=== PATIENT | male | born 1960 | race American Indian/Alaskan Native ===

== ENCOUNTER 2016-10-14 03:26 | Emergency (ER) | payer MEDICAID ==
[2016-10-14] MEDS ORDERED: PERCOCET 5/325 PO ONE (14:56)
[2016-10-14 15:26] LABS: Hematocrit 27.6 % (35.5-45.6); Hemoglobin 8.8 gm/dl (11.8-15.2); Mean Corpuscular HGB Conc 32 % (32-34); Mean Corpuscular Hemoglobin 29 pg (28-32); Mean Corpuscular Volume 92 fl (84-94); Platelet Count 160 K/mm3 (140-440); Red Cell Distribution Width 17.7 % (13.2-15.2); White Blood Count 10.3 K/mm3 (4.5-11.0)
[2016-10-14 15:47] LABS: Alanine Aminotransferase 26 units/L (7-56); Albumin 3.9 g/dL (3.9-5); Albumin/Globulin Ratio 1.4 %; Alkaline Phosphatase 61 units/L (35-129); BUN/Creatinine Ratio 16.66; Blood Urea Nitrogen 20 mg/dL (9-20); Calcium 8.8 mg/dL (8.4-10.2); Carbon Dioxide 40 mmol/L (22-30); Glucose 127 mg/dL (75-100); Total Protein 6.6 g/dL (6.3-8.2)
[2016-10-14 15:48] LABS: Anion Gap 14 mmol/L; Chloride 89.5 mmol/L (98-107); Potassium 5.2 mmol/L (3.6-5.0); Sodium 138 mmol/L (137-145)
[2016-10-14 15:51] LABS: Erythrocyte Sedimentation Rate 39 mm/Hr (0-20)
[2016-10-14] MEDS ORDERED: LASIX PO ONE (16:17)
[2016-10-14] MEDS ORDERED: BACTRIM DS PO ONE (16:17)
[2016-10-14 16:52] LABS: Basophils % (Manual) 0 % (0.0-1.8); Blastocytes % (Manual) 0 %
[2016-10-14 16:53] LABS: Anisocytosis 1+; Hypochromasia 2+; Ovalocytes 1+; Poikilocytosis Few
[2016-10-14 16:54] LABS: Diff Status Complete; Platelet Estimate Consistent w Auto
--- NOTE | 2016-10-14 16:57 | Emergency Department Report ---
ED Extremity Problem HPI - General Chief complaint: Extremity Injury, Lower Stated complaint: FOOT PAIN Time Seen by Provider: 10/14/16 14:42 Source: patient, EMS, old records reviewed Mode of arrival: Stretcher Limitations: No Limitations - History of Present Illness Initial comments: 56-year-old male with a past medical history of asthma, COPD with oxygen dependence, hypertension, CAD, and diabetes presents to the hospital complaining of lower extremity edema and pain. Pain is rated 8/10 in intensity and from the mid thighs down to the feet. Patient's bilateral lower extremity swelling which has persisted since discharge. Patient reports that the pain has been ongoing since his recent discharge 4 days ago . Patient has had swelling in the past but states this is worse to usual. Patient states the pain feels sharp, tingling, and aching. He denies chest pain or shortness of breath at this time. Patient has had multiple admissions the last 2 months. Most recent admission was September 24 until October 10. Patient was many for hypercapnic hypoxemic respiratory failure secondary to acute COPD exacerbation and treated for acute metabolic encephalopathy secondary to the same. Patient was intubated during that admission. Severity scale (0 -10): 10 - Related Data Previous Rx's Medication Instructions Recorded Last Taken Type ALBUTEROL NEB's [Proventil 0.083% 2.5 mg IH Q4HRT PRN #30 nebu 10/10/16 Unknown Rx NEBS] Arformoterol Nebu [Brovana Nebu] 15 mcg IH Q12HRT #30 ml 10/10/16 Unknown Rx Budesoni/Formoterol 80-4.5(Nf) 2 puff IH BID 30 Days 10/10/16 Unknown Rx [Symbicort 80-4.5 (Nf)] Budesonide [Pulmicort Respules] 0.25 mg IH Q12HRT #30 nebu 10/10/16 Unknown Rx Cefuroxime [Ceftin] 500 mg PO Q12HR #20 tablet 10/10/16 Unknown Rx Insulin Detemir [Levemir] 10 units SUB-Q QHS #30 units 10/10/16 Unknown Rx Pantoprazole [Protonix TAB] 40 mg PO QDAY #30 tablet 10/10/16 Unknown Rx Theophylline Anhydrous ER [Hakeem-24] 200 mg PO QDAY capsule 10/10/16 Unknown Rx amLODIPine [Norvasc] 10 mg PO QDAY #30 tablet 10/10/16 Unknown Rx predniSONE [Deltasone] 40 mg PO QDAY #7 tablet 10/10/16 Unknown Rx HYDROcodone/APAP 5-325 [[place] 1 each PO Q6HR PRN #20 tablet 10/14/16 Unknown Rx 5/325] Sulfamethoxazole/Trimethoprim 1 each PO BID #20 tablet 10/14/16 Unknown Rx [Bactrim DS TAB] Allergies Allergy/AdvReac Type Severity Reaction Status Date / Time aspirin Allergy Nausea Verified 09/04/16 21:45 ED Review of Systems ROS: Stated complaint: FOOT PAIN Other details as noted in HPI Comment: All other systems reviewed and negative Other: Constitutional: No fevers chills Eyes: No eye pain visual changes ENT: No ear pain or throat pain Neck: Denies pain Respiratory: Denies cough wheezing Cardiovascular: Denies chest pain, palpitations, syncope GI: Denies abdominal pain, nausea, vomiting, diarrhea : Denies dysuria Musculoskeletal: As per HPI Skin: Denies rash, lesions, erythema Neurologic: Denies headache, numbness, weakness Psychiatric: Denies suicidal ideation, hallucinations ED Past Medical Hx - Past Medical History Previous Medical History?: Yes Hx Hypertension: Yes Hx Heart Attack/AMI: Yes Hx Congestive Heart Failure: No Hx Diabetes: Yes Hx Deep Vein Thrombosis: No Hx Asthma: Yes Hx COPD: Yes Hx HIV: No - Surgical History Past Surgical History?: No Hx Pacemaker: No Hx Internal Defibrillator: No - Social History Smoking Status: Former Smoker Substance Use Type: None - Medications Home Medications: Home Medications Medication Instructions Recorded Confirmed Last Taken Type ALBUTEROL NEB's [Proventil 0.083% 2.5 mg IH Q4HRT PRN #30 nebu 10/10/16 Unknown Rx NEBS] Arformoterol Nebu [Brovana Nebu] 15 mcg IH Q12HRT #30 ml 10/10/16 Unknown Rx Budesoni/Formoterol 80-4.5(Nf) 2 puff IH BID 30 Days 10/10/16 Unknown Rx [Symbicort 80-4.5 (Nf)] Budesonide [Pulmicort Respules] 0.25 mg IH Q12HRT #30 nebu 10/10/16 Unknown Rx Cefuroxime [Ceftin] 500 mg PO Q12HR #20 tablet 10/10/16 Unknown Rx Insulin Detemir [Levemir] 10 units SUB-Q QHS #30 units 10/10/16 Unknown Rx Pantoprazole [Protonix TAB] 40 mg PO QDAY #30 tablet 10/10/16 Unknown Rx Theophylline Anhydrous ER [Hakeem-24] 200 mg PO QDAY capsule 10/10/16 Unknown Rx amLODIPine [Norvasc] 10 mg PO QDAY #30 tablet 10/10/16 Unknown Rx predniSONE [Deltasone] 40 mg PO QDAY #7 tablet 10/10/16 Unknown Rx HYDROcodone/APAP 5-325 [[place] 1 each PO Q6HR PRN #20 tablet 10/14/16 Unknown Rx 5/325] Sulfamethoxazole/Trimethoprim 1 each PO BID #20 tablet 10/14/16 Unknown Rx [Bactrim DS TAB] ED Physical Exam - General Limitations: No Limitations - Other Other exam information: General: No limitations, patient is alert in no acute distress Head exam: Atraumatic, normocephalic Eyes exam: Normal appearance, pupils equal reactive to light, extraocular movements intact ENT: Moist mucous membrane, normal oropharynx Neck exam: Normal inspection, full range of motion, no meningismus nontender Respiratory exam: Clear to auscultation bilateral, no wheezes, rales, crackles Cardiovascular: Normal rate and rhythm, normal heart sounds Abdomen: Soft, nondistended, and nontender, with normal bowel sounds, no rebound, or guarding Extremity: Bilateral leg edema 1-2+. Equal bilaterally. Patient has ecchymosis to right lateral lower leg. Mild redness and warmth to right ankle and foot. 2+DP pulses Back: Normal Inspection, full range of motion, no tenderness Neurologic: Alert, oriented x3, cranial nerves intact, no motor or sensory deficit Psychiatric: normal affect, normal mood Skin: Warm, dry, intact ED Course Vital Signs 10/14/16 10/14/16 10/14/16 03:57 15:25 17:33 Temperature 98.4 F 98.1 F Pulse Rate 106 H 94 H Respiratory 20 20 20 Rate Blood Pressure 150/97 Blood Pressure 148/100 [Right] O2 Sat by Pulse 95 100 Oximetry ED Medical Decision Making - Lab Data Result diagrams: 10/14/16 15:04 10/14/16 15:04 Lab Results 10/14/16 10/14/16 Range/Units 15:04 15:04 WBC 10.3 (4.5-11.0) K/mm3 RBC 3.00 L (3.65-5.03) M/mm3 Hgb 8.8 L (11.8-15.2) gm/dl Hct 27.6 L (35.5-45.6) % MCV 92 (84-94) fl MCH 29 (28-32) pg MCHC 32 (32-34) % RDW 17.7 H (13.2-15.2) % Plt Count 160 (140-440) K/mm3 Add Manual Diff Complete Total Counted 100 Seg Neuts % (Manual) 74.0 H (40.0-70.0) % Band Neutrophils % 6.0 % Lymphocytes % (Manual) 2.0 L (13.4-35.0) % Reactive Lymphs % (Man) 0 % Monocytes % (Manual) 14.0 H (0.0-7.3) % Eosinophils % (Manual) 3.0 (0.0-4.3) % Basophils % (Manual) 0 (0.0-1.8) % Metamyelocytes % 1.0 % Myelocytes % 0 % Promyelocytes % 0 % Blast Cells % 0 % Nucleated RBC % Not Reportable Seg Neutrophils # Man 7.6 (1.8-7.7) K/mm3 Band Neutrophils # 0.6 K/mm3 Lymphocytes # (Manual) 0.2 L (1.2-5.4) K/mm3 Abs React Lymphs (Man) 0.0 K/mm3 Monocytes # (Manual) 1.4 H (0.0-0.8) K/mm3 Eosinophils # (Manual) 0.3 (0.0-0.4) K/mm3 Basophils # (Manual) 0.0 (0.0-0.1) K/mm3 Metamyelocytes # 0.1 K/mm3 Myelocytes # 0.0 K/mm3 Promyelocytes # 0.0 K/mm3 Blast Cells # 0.0 K/mm3 WBC Morphology Not Reportable Hypersegmented Neuts Not Reportable Hyposegmented Neuts Not Reportable Hypogranular Neuts Not Reportable Smudge Cells Not Reportable Toxic Granulation Not Reportable Toxic Vacuolation Not Reportable Dohle Bodies Not Reportable Pelger-Huet Anomaly Not Reportable Dion Rods Not Reportable Platelet Estimate Consistent w auto Clumped Platelets Not Reportable Plt Clumps, EDTA Not Reportable Large Platelets Not Reportable Giant Platelets Not Reportable Platelet Satelliting Not Reportable Plt Morphology Comment Not Reportable RBC Morphology Not Reportable Dimorphic RBCs Not Reportable Polychromasia Not Reportable Hypochromasia 2+ Poikilocytosis Few Anisocytosis 1+ Microcytosis Not Reportable Macrocytosis Not Reportable Spherocytes Not Reportable Pappenheimer Bodies Not Reportable Sickle Cells Not Reportable Target Cells Not Reportable Tear Drop Cells Not Reportable Ovalocytes 1+ Helmet Cells Not Reportable Campbell-[place]ague Bodies Not Reportable [place] Rings Not Reportable Talia Cells Not Reportable Bite Cells Not Reportable Crenated Cell Not Reportable Elliptocytes Not Reportable Acanthocytes (Spur) Not Reportable Rouleaux Not Reportable Hemoglobin C Crystals Not Reportable Schistocytes Not Reportable Malaria parasites Not Reportable ESR 39 (0-20) mm/Hr Aime Bodies Not Reportable Hem Pathologist Commnt No Sodium 138 (137-145) mmol/L Potassium 5.2 H (3.6-5.0) mmol/L Chloride 89.5 L (98-107) mmol/L Carbon Dioxide 40 H (22-30) mmol/L Anion Gap 14 mmol/L BUN 20 (9-20) mg/dL Creatinine 1.2 (0.8-1.5) mg/dL Estimated GFR > 60 ml/min BUN/Creatinine Ratio 16.66 % Glucose 127 H (75-100) mg/dL Calcium 8.8 (8.4-10.2) mg/dL Total Bilirubin 0.50 (0.1-1.2) mg/dL AST 17 (5-40) units/L ALT 26 (7-56) units/L Alkaline Phosphatase 61 (35-129) units/L NT-Pro-B Natriuret Pep 380.3 (0-900) pg/mL Total Protein 6.6 (6.3-8.2) g/dL Albumin 3.9 (3.9-5) g/dL Albumin/Globulin Ratio 1.4 % - Medical Decision Making Patient has bilateral lower extremity edema with equal calf sizes. Patient's workup unremarkable and ED. He may also have diabetic neuropathy. Recent echo revealed a normal EF but diastolic dysfunction. Patient has some redness and warmth to the distal right leg and therefore be covered with Bactrim for possible cellulitis. Other differential includes venous stasis dermatitis. One dose of Lasix provided in the ED to help with diuresis. Patient has had significant renal insufficiency in the past I am hesitant to start a daily diuretic for this reason. Patient's chronic anemia which is improved compared to recent visit. This concerned that patient is not caring for himself properly at home since he has had 2 admissions involving intubation for respiratory failure over the last 2 months. He states he lives with his niece who helps take care of him when he is sick. I encouraged patient to follow up with a primary care doctor closely for reevaluation. - Differential Diagnosis renal failure, heart failure, liver failure, infection/cellulitis Critical Care Time: No Critical care attestation.: If time is entered above; I have spent that time in minutes in the direct care of this critically ill patient, excluding procedure time. ED Disposition Clinical Impression: COPD (chronic obstructive pulmonary disease), Leg edema, Leg pain, bilateral, Cellulitis of right leg Disposition: DC-01 TO HOME OR SELFCARE Is pt being admited?: No Does the pt Need Aspirin: No Condition: Stable Instructions: Chronic Obstructive Pulmonary Disease (ED), Leg Edema (ED), Cellulitis (ED) Additional Instructions: Take the medication as prescribed. It is very important that you follow up with your doctor for further management. Return if symptoms worsen. Prescriptions: HYDROcodone/APAP 5-325 [[place] 5/325] 1 each PO Q6HR PRN #20 tablet PRN Reason: Pain Sulfamethoxazole/Trimethoprim [Bactrim DS TAB] 1 each PO BID #20 tablet Referrals: PRIMARY CARE, [Primary Care Provider] - 2-3 Days Time of Disposition: 17:44
[2016-10-14] MEDS ORDERED: NACL ONE (17:02)
[2016-10-14 19:31] VITALS: BP 141/95
== END 2016-10-14 19:15 | disposition home or self-care (01) ==
LOC: ED 03:26
DX: J44.9 Chronic obstructive pulmonary disease, unspecified (principal); R60.9 Edema, unspecified; L03.115 Cellulitis of right lower limb; I10 Essential (primary) hypertension; I25.2 Old myocardial infarction; E11.9 Type 2 diabetes mellitus without complications; J45.909 Unspecified asthma, uncomplicated; Z87.891 Personal history of nicotine dependence
CPT/HCPCS: 36415; 80053; 83880; 85007; 85025; 85652

== ENCOUNTER 2016-11-27 03:29 | Inpatient (IN) | payer MEDICAID ==
[2016-11-27 05:13] LABS: Basophils % (Auto) 0.3 % (0.0-1.8); Eosinophils % (Auto) 2.2 % (0.0-4.3); Hematocrit 27.6 % (35.5-45.6); Hemoglobin 8.8 gm/dl (11.8-15.2); Mean Corpuscular HGB Conc 32 % (32-34); Mean Corpuscular Hemoglobin 29 pg (28-32); Mean Corpuscular Volume 92 fl (84-94); Platelet Count 154 K/mm3 (140-440); Red Cell Distribution Width 16.6 % (13.2-15.2); White Blood Count 5.8 K/mm3 (4.5-11.0)
[2016-11-27 05:14] LABS: Alanine Aminotransferase 9 units/L (7-56); Albumin 4.2 g/dL (3.9-5); Albumin/Globulin Ratio 1.6 %; Alkaline Phosphatase 59 units/L (35-129); BUN/Creatinine Ratio 15.38; Blood Urea Nitrogen 20 mg/dL (9-20); Calcium 9.4 mg/dL (8.4-10.2); Chloride 90.5 mmol/L (98-107); Glucose 222 mg/dL (75-100); Sodium 139 mmol/L (137-145); Total Protein 6.9 g/dL (6.3-8.2)
[2016-11-27 05:24] LABS: INR 0.88 (0.87-1.13); Partial Thromboplastin Time 27.4 Sec. (24.2-36.6)
[2016-11-27 05:29] LABS: Anion Gap 9 mmol/L; Carbon Dioxide 45 mmol/L (22-30)
--- NOTE | 2016-11-27 07:55 | XRay Report ---
AP CHEST: HISTORY: Dyspnea The lungs are hyperinflated consistent with advanced emphysema. There is mild cardiomegaly and borderline pulmonary venous congestion. No evidence for pneumonia, large pleural effusion or pneumothorax. The bony structures are within normal limits. IMPRESSION: COPD. Mild cardiomegaly.
[2016-11-27 08:20] LABS: ISTAT Base Excess 23; ISTAT HCO3 49.3; ISTAT PCO2 97.8 (35-45); ISTAT PO2 85 (80-105); ISTAT SITE 1; ISTAT SO2 94; ISTAT TCO2 > 50
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
[2016-11-27] MEDS ORDERED: TYLENOL PO PRN (10:09)
[2016-11-27] MEDS ORDERED: DULCOLAX PR PRN (10:09)
[2016-11-27] MEDS ORDERED: PROVENTIL IH PRN (10:09)
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
[2016-11-27] MEDS: NORVASC PO SCH (12:30)
[2016-11-27] MEDS: PROTONIX PO SCH (12:30)
--- NOTE | 2016-11-27 13:21 | Admit Criteria Form ---
Admission Criteria Documentation: RESPIRATORY FAILURE GRG Clinical Indications for Admission to Inpatient Care (Place 'X' for any and all applicable criteria): Hospital admission is needed for appropriate care of the patient because of acute respiratory failure or insufficiency as indicated by 1 or more of the following (1)(2)(3)(4)(5)(6)(7)(8 ): [ ]I. Mechanical ventilation needed (acute invasive or noninvasive) [X ]II. Severe ventilation deficit as indicated by 1 or more of the following (9) [X ]a) Uncompensated Respiratory acidosis (pH < 7.35 and PaCO2 > 40 mmHg (5.3 kPa)) [ ]b) Airflow measurements < 25% of predicted (eg, PEFR < 100 L/min) [ ]c) FVC < 15 mL/kg of ideal body weight, or 50% decrease in vital capacity from baseline [ ]III. Noncardiac pulmonary edema not resolving with rapid emergency treatment (8) [ ]IV. Severe respiratory distress as indicated by 1 or more of the following: [ ]a) Severe tachypnea (respiratory rate greater than 30, greater than 45 for 6-month-old, greater than 60 for ) [ ]b) Severe hypoxemia (partial pressure of oxygen less than 50 mm Hg ( 6.7 kPa) on greater than 50% oxygen or partial pressure of oxygen to FIO2 ratio less than 200) [ ]c) Mental status deterioration from respiratory disease [ ]V. Airway obstruction or inadequate protection [A](10)(11) The original [employer] content created by [employer] has been revised. The portions of the content which have been revised are identified through the use of italic text or in bold, and [employer] has neither reviewed nor approved the modified material. All other unmodified content is copyright [employer]. Please see references footnoted in the original [employer] edition 2017 Admission Criteria Met: Yes
[2016-11-27] MEDS: DUONEB *Not for PRN Use IH SCH ×2 (13:36→20:24)
[2016-11-27] MEDS: BROVANA NEBU IH SCH ×2 (13:48→20:24)
[2016-11-27] MEDS: PULMICORT IH SCH ×2 (13:49→20:24)
[2016-11-27] MEDS: ZITHROMAX 500 MG in NACL 0.9% 250ML 250 ML IV SCH (14:29)
--- NOTE | 2016-11-27 19:33 | Consultation ---
History of Present Illness Consult date: 11/27/16 History of present illness: This 56 year old male history of COPD on Home O2 and On Home BIPAP admitted with shortness of breath. Patient had Pwer failure at home. Can not use his O2 Or BIPAPSo patient came to the emergency room.Patient also has history of Hypertension ,Diabetes and [place].History of pacemaker implantation. Patient has history of smoking. He is not smoking now. Denies alcohol or drug abuse. 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 Aleergic to aspirin. Denies chest pain, sore throat or nasal congestion. Denies fever or chills. Denies weight loss. e. Past History Past Medical History: CAD, COPD, diabetes, GERD, hypertension, other ([place]) Past Surgical History: Other (pacemaker ) Social history: Lives alone, smoking Family history: CAD, hypertension Medications and Allergies Allergies Allergy/AdvReac Type Severity Reaction Status Date / Time aspirin Allergy Nausea Verified 09/04/16 21:45 Home Medications Medication Instructions Recorded Confirmed Last Taken Type ALBUTEROL NEB's [Proventil 0.083% 2.5 mg IH Q4HRT PRN #30 nebu 10/10/16 Unknown Rx NEBS] Arformoterol Nebu [Brovana Nebu] 15 mcg IH Q12HRT #30 ml 10/10/16 11/27/16 Unknown Rx Budesoni/Formoterol 80-4.5(Nf) 2 puff IH BID 30 Days 10/10/16 11/27/16 Unknown Rx [Symbicort 80-4.5 (Nf)] Budesonide [Pulmicort Respules] 0.25 mg IH Q12HRT #30 nebu 10/10/16 11/27/16 Unknown Rx Cefuroxime [Ceftin] 500 mg PO Q12HR #20 tablet 10/10/16 11/27/16 Unknown Rx Insulin Detemir [Levemir] 10 units SUB-Q QHS #30 units 10/10/16 11/27/16 Unknown Rx Pantoprazole [Protonix TAB] 40 mg PO QDAY #30 tablet 10/10/16 11/27/16 Unknown Rx Theophylline Anhydrous ER [Hakeem-24] 200 mg PO QDAY capsule 10/10/16 11/27/16 Unknown Rx amLODIPine [Norvasc] 10 mg PO QDAY #30 tablet 10/10/16 11/27/16 Unknown Rx predniSONE [Deltasone] 40 mg PO QDAY #7 tablet 10/10/16 11/27/16 Unknown Rx HYDROcodone/APAP 5-325 [[place] 1 each PO Q6HR PRN #20 tablet 10/14/16 11/27/16 Unknown Rx 5/325] Sulfamethoxazole/Trimethoprim 1 each PO BID #20 tablet 10/14/16 11/27/16 Unknown Rx [Bactrim DS TAB] Active Meds: Active Medications Acetaminophen (Tylenol) 650 mg PO Q4H PRN PRN Reason: Pain MILD(1-3)/Fever >100.5/NORRIS Albuterol (Proventil) 2.5 mg IH Q3HRT PRN PRN Reason: Shortness Of Breath Albuterol/Ipratropium (Duoneb *Not For Prn Use*) 1 ampul IH Q6HRT [facility] Last Admin: 11/27/16 13:36 Dose: 1 ampul Amlodipine Besylate (Norvasc) 10 mg PO QDAY [facility] Last Admin: 11/27/16 12:30 Dose: 10 mg Arformoterol Tartrate (Brovana Nebu) 15 mcg IH Q12HRT [facility] Last Admin: 11/27/16 13:48 Dose: Not Given Bisacodyl (Dulcolax) 10 mg [place] QDAY PRN PRN Reason: Constipation unrelieved by MOM Budesonide (Pulmicort) 0.5 mg IH Q12HRT [facility] Last Admin: 11/27/16 13:49 Dose: Not Given Azithromycin 500 mg/ Sodium (Chloride) 250 mls @ 250 mls/hr IV Q24HR [facility] Last Admin: 11/27/16 14:29 Dose: 250 mls/hr Insulin Detemir (Levemir) 10 units SUB-Q QHS [facility] Methylprednisolone Sodium Succinate (Solu-Medrol) 40 mg IV BID [facility] Last Admin: 11/27/16 14:29 Dose: 40 mg Pantoprazole Sodium (Protonix) 40 mg PO QDAY [facility] Last Admin: 11/27/16 12:30 Dose: 40 mg Review of Systems All systems: negative Physical Examination Vital signs: Vital Signs Temp Pulse Resp BP Pulse Ox 98.6 F 91 H 18 119/80 96 11/27/16 03:40 11/27/16 03:40 11/27/16 03:40 11/27/16 03:40 11/27/16 03:40 General appearance: no acute distress, alert Eyes: non-icteric ENT: oropharynx moist Neck: supple, no JVD Ascultation: Bilateral: diminished breath sounds Cardiovascular: regular rate and rhythm Gastrointestinal: normoactive bowel sounds, soft, non-tender Integumentary: normal Extremities: no cyanosis, no edema, pink and warm Musculoskeletal: no deformities Gait: other (resting in bed at this time.) normal mental status, non-focal exam, pupils equal and round, CN II-XII normal mood appropriate Results - Laboratory Findings CBC and BMP: 11/27/16 04:05 11/27/16 04:05 ABG POC ABG pH 7.310 (7.35-7.45) L 11/27/16 08:17 POC ABG pCO2 97.8 (35-45) H 11/27/16 08:17 POC ABG pO2 85 (80-105) 11/27/16 08:17 POC ABG HCO3 49.3 11/27/16 08:17 POC ABG Total CO2 > 50 11/27/16 08:17 POC ABG O2 Sat 94 11/27/16 08:17 PT/INR, D-dimer PT 11.8 Sec. (12.2-14.9) L 11/27/16 04:05 INR 0.88 (0.87-1.13) 11/27/16 04:05 - Diagnostic Findings Chest x-ray: report reviewed (Changes of COPD, Mild cardiomegaly.), image reviewed Assessment and Plan This 56 year old male history of COPD on Home O2 and On Home BIPAP admitted with shortness of breath. Patient had Pwer failure at home. Can not use his O2 Or BIPAPSo patient came to the emergency room.Patient also has history of Hypertension ,Diabetes and [place].History of pacemaker implantation. Patient has history of smoking. He is not smoking now. Denies alcohol or drug abuse. 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 Aleergic to aspirin. Denies chest pain, sore throat or nasal congestion. Denies fever or chills. Denies weight loss. - Patient Problems (1) Acute and chronic respiratory failure Current Visit: Yes Status: Acute Qualifiers: Respiratory failure complication: R Plan to address problem: BIPAP 14/5, rate 20, FIO2 30%. Brovanna/Budesonide aerosol treatments q 12 hours. Albuterol/atrovent aerosol treatments q 6 hours prn for shortness of breath. Continue I/V solumedral Continue Zithromax. Continue protonix. Recommend S/C Lovenox. SCDs. (2) COPD (chronic obstructive pulmonary disease) Current Visit: Yes Status: Chronic Qualifiers: COPD type: C Chronic bronchitis type: C Emphysema type: E Plan to address problem: Brovanna/Budesonide aerosol treatments q 12 hours. Albuterol/atrovent aerosol treatments q 6 hours prn for shortness of breath. Continue I/V solumedral Continue Zithromax. Continue protonix. Recommend S/C Lovenox. SCDs. (3) Diabetes Current Visit: No Status: Chronic Qualifiers: Diabetes mellitus type: D Diabetes mellitus complication status: D Diabetes mellitus complication detail: D Diabetic retinopathy severity: D Proliferative retinopathy type: P Diabetes mellitus macular edema: D Diabetes mellitus penitentiary insulin use: D Laterality: L Chronic kidney disease stage: C Plan to address problem: Management as per primary care. (4) Hypertension Current Visit: No Status: Chronic Qualifiers: Hypertension type: H Plan to address problem: Management as per primary care.
[2016-11-27] MEDS ORDERED: NON-FORMULARY (Budesoni/Formoterol 80-4.5(Nf) 2 PUFF) IH SCH (22:00)
[2016-11-27] MEDS: LEVEMIR SUB-Q SCH (22:25)
[2016-11-28] MEDS: DUONEB *Not for PRN Use IH SCH ×4 (02:43→22:08)
[2016-11-28 05:26] LABS: Basophils % (Auto) 0.3 % (0.0-1.8); Hemoglobin 7.7 gm/dl (11.8-15.2); Mean Corpuscular HGB Conc 32 % (32-34); Mean Corpuscular Hemoglobin 29 pg (28-32); Mean Corpuscular Volume 91 fl (84-94); Platelet Count 132 K/mm3 (140-440); Red Blood Count 2.63 M/mm3 (3.65-5.03); Red Cell Distribution Width 16.1 % (13.2-15.2)
[2016-11-28 05:47] LABS: BUN/Creatinine Ratio 18.66; Calcium 9.2 mg/dL (8.4-10.2); Chloride 87.7 mmol/L (98-107); Potassium 5.1 mmol/L (3.6-5.0)
[2016-11-28] MEDS: PULMICORT IH SCH ×2 (07:49→22:07)
[2016-11-28] MEDS: BROVANA NEBU IH SCH ×2 (07:50→22:07)
[2016-11-28] MEDS: PROTONIX PO SCH (09:17)
[2016-11-28] MEDS: NOVOLOG SUB-Q SCH ×4 (09:17→22:58)
[2016-11-28] MEDS: NORVASC PO SCH (09:18)
--- NOTE | 2016-11-28 09:31 | Progress Note ---
Assessment and Plan Assessment and plan: Acute respiratory failure with hypoxia Cont. with BiPAP as clinically indicated. Aggressive Nebulizers/Inhalers ABG when necessary Oxygen supplement--wean as tolerated Pulmonary consulted. Supportive care COPD exacerbation Cont. on Duoneb every 6 hours Cont. IV steroid Solumedrol every 6 hours Cont. IV azithromycin. Oxygen as necessary Hypertension Cont. home antihypertensive medications Closely monitor blood pressure Diabetes mellitus Accucheck before meals and at bedtime Sliding scale insulin/NovoLog Anemia Due to chronic diseases Closely monitor H&H Tobacco use Smoking cessation. Counseling done. Patient strongly advised to quit. DVT prophylaxis Lovenox History Interval history: Patient states that his breathing is better but still dyspneic with minimal exertion Hospitalist Physical - Constitutional Vitals: Temp Pulse Resp BP Pulse Ox 99.0 F 85 18 99/61 93 11/28/16 07:35 11/28/16 09:16 11/28/16 09:12 11/28/16 09:16 11/28/16 09:16 General appearance: Present: no acute distress - EENT Eyes: Present: PERRL, EOM intact ENT: hearing intact, clear oral mucosa, dentition normal - Neck Neck: Present: supple, normal ROM - Respiratory Respiratory effort: normal Respiratory: bilateral: diminished, wheezing - Cardiovascular Rhythm: regular Heart Sounds: Present: S1 & S2. Absent: gallop, rub - Extremities Extremities: no ischemia, No edema, Full ROM - Abdominal General gastrointestinal: soft, non-tender, non-distended, normal bowel sounds - Integumentary Integumentary: Present: clear, warm, dry - Neurologic Neurologic: CNII-XII intact, moves all extremities Results - Labs CBC & Chem 7: 11/28/16 05:02 11/28/16 05:02 Labs: Laboratory Last Values WBC 6.0 K/mm3 (4.5-11.0) 11/28/16 05:02 RBC 2.63 M/mm3 (3.65-5.03) L 11/28/16 05:02 Hgb 7.7 gm/dl (11.8-15.2) L 11/28/16 05:02 Hct 24.0 % (35.5-45.6) L 11/28/16 05:02 MCV 91 fl (84-94) 11/28/16 05:02 MCH 29 pg (28-32) 11/28/16 05:02 MCHC 32 % (32-34) 11/28/16 05:02 RDW 16.1 % (13.2-15.2) H 11/28/16 05:02 Plt Count 132 K/mm3 (140-440) L 11/28/16 05:02 Lymph % (Auto) 11.6 % (13.4-35.0) L 11/28/16 05:02 [place] % (Auto) 3.7 % (0.0-7.3) 11/28/16 05:02 Eos % (Auto) 0.0 % (0.0-4.3) 11/28/16 05:02 Baso % (Auto) 0.3 % (0.0-1.8) 11/28/16 05:02 Lymph # 0.7 K/mm3 (1.2-5.4) L 11/28/16 05:02 [place] # 0.2 K/mm3 (0.0-0.8) 11/28/16 05:02 Eos # 0.0 K/mm3 (0.0-0.4) 11/28/16 05:02 Baso # 0.0 K/mm3 (0.0-0.1) 11/28/16 05:02 Seg Neutrophils % 84.4 % (40.0-70.0) H 11/28/16 05:02 Seg Neutrophils # 5.1 K/mm3 (1.8-7.7) 11/28/16 05:02 PT 11.8 Sec. (12.2-14.9) L 11/27/16 04:05 INR 0.88 (0.87-1.13) 11/27/16 04:05 APTT 27.4 Sec. (24.2-36.6) 11/27/16 04:05 POC ABG pH 7.310 (7.35-7.45) L 11/27/16 08: POC ABG pCO2 97.8 (35-45) H 11/27/16 08:17 POC ABG pO2 85 (80-105) 11/27/16 08:17 POC ABG HCO3 49.3 11/27/16 08:17 POC ABG Total CO2 > 50 11/27/16 08:17 POC ABG O2 Sat 94 11/27/16 08:17 POC ABG Base Excess 23 11/27/16 08:17 FiO2 28 % 11/27/16 08:17 Sodium 135 mmol/L (137-145) L 11/28/16 05:02 Potassium 5.1 mmol/L (3.6-5.0) H 11/28/16 05:02 Chloride 87.7 mmol/L (98-107) L 11/28/16 05:02 Carbon Dioxide 38 mmol/L (22-30) H D 11/28/16 05:02 Anion Gap 14 mmol/L 11/28/16 05:02 BUN 28 mg/dL (9-20) H 11/28/16 05:02 Creatinine 1.5 mg/dL (0.8-1.5) 11/28/16 05:02 Estimated GFR 59 ml/min 11/28/16 05:02 BUN/Creatinine Ratio 18.66 % 11/28/16 05:02 Glucose 294 mg/dL (75-100) H 11/28/16 05:02 POC Glucose 297 (70-105) H 11/28/16 05:32 Calcium 9.2 mg/dL (8.4-10.2) 11/28/16 05:02 Magnesium 1.90 mg/dL (1.7-2.3) 11/27/16 04:05 Total Bilirubin 0.30 mg/dL (0.1-1.2) 11/27/16 04:05 AST 13 units/L (5-40) 11/27/16 04:05 ALT 9 units/L (7-56) 11/27/16 04:05 Alkaline Phosphatase 59 units/L (35-129) 11/27/16 04:05 Troponin T < 0.010 ng/mL (0.00-0.029) 11/27/16 04:05 Total Protein 6.9 g/dL (6.3-8.2) 11/27/16 04:05 Albumin 4.2 g/dL (3.9-5) 11/27/16 04:05 Albumin/Globulin Ratio 1.6 % 11/27/16 04:05
[2016-11-28 14:48] LABS: ISTAT Base Excess TNR; ISTAT HCO3 TNR; ISTAT PCO2 TNR (35-45); ISTAT PH TNR (7.35-7.45)
[2016-11-28 14:49] LABS: ISTAT PO2 TNR (80-105); ISTAT SO2 TNR; ISTAT TCO2 TNR
[2016-11-28] MEDS: ZITHROMAX 500 MG in NACL 0.9% 250ML 250 ML IV SCH (15:13)
[2016-11-28] MEDS: LEVEMIR SUB-Q SCH (22:00)
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
[2016-11-29] MEDS: DUONEB *Not for PRN Use IH SCH ×4 (02:40→19:59)
[2016-11-29 06:31] LABS: Basophils % (Auto) 0.1 % (0.0-1.8); Hematocrit 23.8 % (35.5-45.6); Hemoglobin 7.8 gm/dl (11.8-15.2); Mean Corpuscular HGB Conc 33 % (32-34); Mean Corpuscular Hemoglobin 30 pg (28-32); Mean Corpuscular Volume 90 fl (84-94); Platelet Count 153 K/mm3 (140-440); Red Blood Count 2.63 M/mm3 (3.65-5.03); Red Cell Distribution Width 16.8 % (13.2-15.2); White Blood Count 8.4 K/mm3 (4.5-11.0)
[2016-11-29 06:51] LABS: BUN/Creatinine Ratio 19.41; Calcium 9.3 mg/dL (8.4-10.2); Chloride 90.5 mmol/L (98-107); Potassium 4.7 mmol/L (3.6-5.0)
[2016-11-29] MEDS: PULMICORT IH SCH ×2 (08:03→19:52)
[2016-11-29] MEDS: BROVANA NEBU IH SCH ×2 (08:03→19:52)
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
--- NOTE | 2016-11-29 08:21 | Event Note ---
DEXTER Trial of IV fluids -if does not improve with get renal US and nephrology consult COPD continue to wean steroids, continue nebs and abx
[2016-11-29] MEDS: NOVOLOG SUB-Q SCH ×3 (08:26→17:29)
[2016-11-29] MEDS: PROTONIX PO SCH (09:09)
[2016-11-29] MEDS: NORVASC PO SCH (09:18)
[2016-11-29] MEDS: ZITHROMAX 500 MG in NACL 0.9% 250ML 250 ML IV SCH (09:38)
[2016-11-29] MEDS: LEVEMIR SUB-Q SCH (22:17)
[2016-11-30] MEDS: NOVOLOG SUB-Q SCH ×5 (00:23→23:36)
[2016-11-30 05:21] LABS: BUN/Creatinine Ratio 17.64; Chloride 94.5 mmol/L (98-107); Potassium 4.9 mmol/L (3.6-5.0)
[2016-11-30] MEDS: DUONEB *Not for PRN Use IH SCH ×4 (05:38→20:02)
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
[2016-11-30] MEDS: PULMICORT IH SCH ×2 (09:56→20:02)
[2016-11-30] MEDS: BROVANA NEBU IH SCH ×2 (09:56→20:02)
[2016-11-30] MEDS: PROTONIX PO SCH (11:24)
[2016-11-30] MEDS: NORVASC PO SCH (11:24)
[2016-11-30] MEDS: ZITHROMAX 500 MG in NACL 0.9% 250ML 250 ML IV SCH (11:35)
[2016-11-30] MEDS: NACL 0.45% 1000 ML 1,000 ML IV SCH (11:39)
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
[2016-11-30] MEDS: LEVEMIR SUB-Q SCH (23:38)
[2016-12-01] MEDS: DUONEB *Not for PRN Use IH SCH ×4 (02:13→19:31)
[2016-12-01 05:47] LABS: BUN/Creatinine Ratio 18.12; Calcium 9.2 mg/dL (8.4-10.2)
[2016-12-01] MEDS: NACL 0.45% 1000 ML 1,000 ML IV SCH ×2 (07:39→17:26)
[2016-12-01] MEDS: PULMICORT IH SCH ×2 (07:42→19:29)
[2016-12-01] MEDS: BROVANA NEBU IH SCH ×2 (07:42→19:29)
[2016-12-01] MEDS: NOVOLOG SUB-Q SCH ×4 (08:08→22:37)
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
[2016-12-01] MEDS: NORVASC PO SCH (10:08)
[2016-12-01] MEDS: ZITHROMAX PO SCH (10:09)
[2016-12-01] MEDS: PROTONIX PO SCH (10:09)
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
[2016-12-01] MEDS: LEVEMIR SUB-Q SCH (22:39)
[2016-12-02] MEDS: DUONEB *Not for PRN Use IH SCH ×3 (01:48→13:47)
[2016-12-02] MEDS: NACL 0.45% 1000 ML 1,000 ML IV SCH (02:40)
[2016-12-02 07:09] LABS: Anion Gap 15 mmol/L; BUN/Creatinine Ratio 21.42; Blood Urea Nitrogen 30 mg/dL (9-20); Calcium 9.3 mg/dL (8.4-10.2); Carbon Dioxide 32 mmol/L (22-30); Chloride 93.7 mmol/L (98-107); Glucose 81 mg/dL (75-100); Potassium 4.9 mmol/L (3.6-5.0); Sodium 136 mmol/L (137-145)
[2016-12-02] MEDS: BROVANA NEBU IH SCH (07:21)
[2016-12-02] MEDS: PULMICORT IH SCH (07:21)
[2016-12-02] MEDS: NOVOLOG SUB-Q SCH ×2 (08:59→12:16)
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
[2016-12-02] MEDS: PROTONIX PO SCH (10:04)
[2016-12-02] MEDS: ZITHROMAX PO SCH (10:04)
[2016-12-02] MEDS: NORVASC PO SCH (10:06)
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
[2016-12-02 12:19] VITALS: BP 134/88
== END 2016-12-02 14:26 | disposition home or self-care (01) | DRG 189 ==
LOC: ED 03:29 → 3A 10:09
PROVIDERS: ADMIT Hospitalist; ATTEND Internal Medicine
PROC: 4A033R1 Measurement of Arterial Saturation, Peripheral, Percutaneous Approach (ICD-10-PCS; principal; 2016-11-27)
PROC: 5A09557 Assistance with Respiratory Ventilation, Greater than 96 Consecutive Hours, Continuous Positive Airway Pressure (ICD-10-PCS; 2016-11-27)
DX: J96.21 Acute and chronic respiratory failure with hypoxia (principal); N17.0 Acute kidney failure with tubular necrosis; J96.22 Acute and chronic respiratory failure with hypercapnia; J44.1 Chronic obstructive pulmonary disease with (acute) exacerbation; I10 Essential (primary) hypertension; E11.8 Type 2 diabetes mellitus with unspecified complications; D63.8 Anemia in other chronic diseases classified elsewhere; K21.9 Gastro-esophageal reflux disease without esophagitis; D64.9 Anemia, unspecified; I25.2 Old myocardial infarction; Z72.0 Tobacco use; Z99.81 Dependence on supplemental oxygen; Z82.49 Family history of ischemic heart disease and other diseases of the circulatory system; Z95.0 Presence of cardiac pacemaker; Z88.6 Allergy status to analgesic agent; Z71.6 Tobacco abuse counseling
CPT/HCPCS: 36415; 71010; 80048; 80053; 82803; 82962; 83735; 84484; 85025; 85610; 85730; 93005; 93010; 94640; 94660; 94760; J0456; J1815; J1818; J2920; J7050

== ENCOUNTER 2017-07-01 21:46 | Emergency (ER) | payer MEDICAID ==
[2017-07-01] MEDS ORDERED: KETALAR ONE (22:09)
[2017-07-01] MEDS ORDERED: NACL 0.9% 1000 ML 1,000 ML IV ONE (22:20)
[2017-07-01] MEDS ORDERED: PROVENTIL IH ONE (22:20)
[2017-07-01] MEDS ORDERED: VASELINE LIP THERAPY TP PRN (22:25)
[2017-07-01] MEDS ORDERED: ARTIFICIAL TEARS OPHTH OINT OU PRN (22:25)
--- NOTE | 2017-07-01 22:34 | Emergency Department Report ---
ED General Adult HPI - General Chief complaint: Dyspnea/Respdistress Stated complaint: ANGELA Time Seen by Provider: 07/01/17 22:20 Source: EMS, old records reviewed Mode of arrival: Stretcher Limitations: Altered Mental Status - History of Present Illness Initial comments: This is a 57-year-old male. Patient from a local [facility], has a past medical history of COPD, respiratory failure, hypertensive kidney disease, multiple hospital admissions for respiratory failure. Patient was brought to the hospital by EMS for altered mental status of unknown duration. Apparently the patient was hypoxic prior to arrival. Upon arrival to the ER, the patient was obtunded, had an emergent ABG which demonstrated hypercapnic respiratory failure, with a PaCO2 of 1:30. On his initial evaluation the patient was altered, somnolent, not protecting his airway. Given this, he was emergently intubated, using rapid sequence induction techniques, induced with ketamine, and paralyzed with rocuronium.. After intubation, tube placement was confirmed with direct inspection, x-ray of the chest, and end-tidal capnography. After intubation, the patient's abdomen and chest had excursion performed to expel extra retained gas and CO2. Shortly after intubation, the patient decompensated, became bradycardic and hypotensive. An EKG was nonspecific. Pulses were lost. CPR was initiated. Standard ACLS interventions were undertaken. Patient's abdomen became distended , and tympanic. Patient empirically had bilateral chest decompression performed with 16 Beninese IVs in the bilateral mid axillary lines. Unfortunately, pulses cannot be obtained, and resuscitation efforts were terminated secondary to medical futility. -: unknown Consistency: constant Improves with: none Worsens with: none Associated Symptoms: confusion, weakness - Related Data Previous Rx's Medication Instructions Recorded Last Taken Type Detemir (Nf) [Levemir (Nf)] 10 units SUB-Q QHS #30 units 10/10/16 1 Day Ago Rx ~01/24/17 Albuterol Sulfate [Ventolin HFA] 2 puff IH Q4H PRN #1 hfa.aer.ad 01/28/17 Unknown Rx ALBUTEROL NEB's [Proventil 0.083% 2.5 mg IH Q3HRT PRN #30 nebu 04/18/17 Unknown Rx NEBS] ALBUTEROL NEB's [Proventil 0.083% 2.5 mg IH Q4H PRN 30 Days #30 04/18/17 Unknown Rx NEBS] Acetaminophen [Acetaminophen TAB] 650 mg PO Q4H PRN #30 tablet 04/18/17 Unknown Rx Budesonide [Pulmicort Respules] 0.25 mg IH Q12H 30 Days #30 day 04/18/17 Unknown Rx Insulin Aspart [NovoLOG Flexpen] See Protocol SQ ACHS 30 Days #30 04/18/17 Unknown Rx Ipratropium [Atrovent NEB] 0.5 mg IH BID 30 Days #30 04/18/17 Unknown Rx Levofloxacin [Levaquin TAB] 750 mg PO Q48HR #5 dose 04/18/17 Unknown Rx Ondansetron [Zofran TAB] 4 mg PO Q6H PRN 30 Days #30 04/18/17 Unknown Rx Pantoprazole [Protonix TAB] 40 mg PO QAM 30 Days #30 04/18/17 Unknown Rx Theophylline Anhydrous ER [Hakeem-24] 200 mg PO QDAY #30 capsule 04/18/17 1 Day Ago Rx ~01/24/17 amLODIPine [Norvasc] 5 mg PO QDAY #30 tablet 04/18/17 Unknown Rx methylPREDNISolone [Medrol Dose 1 dose PO DAILY #1 pack 04/18/17 Unknown Rx Celso] oxyCODONE /ACETAMINOPHEN [Percocet 1 tab PO Q6H PRN #20 tablet 04/18/17 Unknown Rx 5/325 mg] Allergies Allergy/AdvReac Type Severity Reaction Status Date / Time aspirin Allergy Nausea Verified 09/04/16 21:45 ED Review of Systems ROS: Stated complaint: ANGELA Other details as noted in HPI Comment: Unobtainable due to pts medical conditions ED Past Medical Hx - Past Medical History Previous Medical History?: Yes Hx Hypertension: Yes Hx Heart Attack/AMI: Yes Hx Congestive Heart Failure: Yes Hx Diabetes: Yes Hx Deep Vein Thrombosis: No Hx Pulmonary Embolism: No Hx Renal Disease: Yes Hx Sickle Cell Disease: No Hx Arthritis: No Hx Kidney Stones: No Hx Asthma: Yes Hx COPD: Yes Hx HIV: No - Surgical History Past Surgical History?: Yes Hx Coronary Stent: Yes Hx Open Heart Surgery: No Hx Pacemaker: No Hx Internal Defibrillator: No - Social History Smoking Status: Former Smoker - Medications Home Medications: Home Medications Medication Instructions Recorded Confirmed Last Taken Type Detemir (Nf) [Levemir (Nf)] 10 units SUB-Q QHS #30 units 10/10/16 04/11/17 1 Day Ago Rx ~01/24/17 Albuterol Sulfate [Ventolin HFA] 2 puff IH Q4H PRN #1 hfa.aer.ad 01/28/17 Unknown Rx ALBUTEROL NEB's [Proventil 0.083% 2.5 mg IH Q3HRT PRN #30 nebu 04/18/17 Unknown Rx NEBS] ALBUTEROL NEB's [Proventil 0.083% 2.5 mg IH Q4H PRN 30 Days #30 04/18/17 Unknown Rx NEBS] Acetaminophen [Acetaminophen TAB] 650 mg PO Q4H PRN #30 tablet 04/18/17 Unknown Rx Budesonide [Pulmicort Respules] 0.25 mg IH Q12H 30 Days #30 day 04/18/17 Unknown Rx Insulin Aspart [NovoLOG Flexpen] See Protocol SQ ACHS 30 Days #30 04/18/1704/11 Unknown Rx Ipratropium [Atrovent NEB] 0.5 mg IH BID 30 Days #30 04/18/17 04/11/17 Unknown Rx Levofloxacin [Levaquin TAB] 750 mg PO Q48HR #5 dose 04/18/17 Unknown Rx Ondansetron [Zofran TAB] 4 mg PO Q6H PRN 30 Days #30 04/18/17 04/11/17 Unknown Rx Pantoprazole [Protonix TAB] 40 mg PO QAM 30 Days #30 04/18/17 04/11/17 Unknown Rx Theophylline Anhydrous ER [Hakeem-24] 200 mg PO QDAY #30 capsule 04/18/17 1 Day Ago Rx ~01/24/17 amLODIPine [Norvasc] 5 mg PO QDAY #30 tablet 04/18/17 Unknown Rx methylPREDNISolone [Medrol Dose 1 dose PO DAILY #1 pack 04/18/17 Unknown Rx Celso] oxyCODONE /ACETAMINOPHEN [Percocet 1 tab PO Q6H PRN #20 tablet 04/18/17 Unknown Rx 5/325 mg] ED Physical Exam - General Limitations: Altered Mental Status General appearance: obtunded - Eye Eye exam: Present: PERRL - ENT ENT exam: Present: mucous membranes dry - Neck Neck exam: Present: normal inspection - Respiratory Respiratory exam: Present: respiratory distress, decreased breath sounds - Cardiovascular Cardiovascular Exam: Present: regular rate, normal rhythm - GI/Abdominal GI/Abdominal exam: Present: soft. Absent: distended, tenderness, guarding, rebound, rigid, pulsatile mass - exam: Present: normal inspection External exam: Present: normal external exam - Extremities Exam Extremities exam: Present: normal inspection - Back Exam Back exam: Present: normal inspection - Neurological Exam Neurological exam: Present: altered - Psychiatric Psychiatric exam: Present: other (patient nonverbal prior to intubation) - Skin Skin exam: Present: dry ED Course Vital Signs 07/01/17 07/01/17 07/01/17 21:42 21:46 21:56 Pulse Rate 106 H Respiratory 18 Rate Blood Pressure 134/72 Blood Pressure [Right] O2 Sat by Pulse 100 82 L 100 Oximetry 07/01/17 07/01/17 07/01/17 22:10 22:14 22:15 Pulse Rate 99 H 126 H Respiratory 18 18 13 Rate Blood Pressure 102/60 Blood Pressure 109/68 [Right] O2 Sat by Pulse 99 100 100 Oximetry 07/01/17 07/01/17 07/01/17 22:31 22:45 23:01 Pulse Rate 81 40 L 179 H Respiratory 30 H 26 H Rate Blood Pressure 102/60 158/104 135/44 Blood Pressure [Right] O2 Sat by Pulse 64 L 85 Oximetry - Reevaluation(s) Reevaluation #1: 07/01/17 23:27 Patient cannot be thrombolyzed secondary to concern for intracranial hemorrhage/ surgical process in the chest/abdomen. - Procedure Description Procedures done: bilateral anterior chest wall, second intercostal space, mid axillary line, 16 Beninese IV placed. - Intubation Time Out Performed: Yes Sedative: Ketamine Mg Given: 150 Paralytic: Rocuronium Mg Given: 100 Laryngoscope: Shamir Size: 3 ET Tube Size: 7.5 Tube Secured Depth (cm): 23 Tube Secured Location: teeth Tube Placement Confirmation: visualized tube passing t, equal breath sounds bilat, no breath sounds over epi, confirmation by capnometr Patient Tolerated Procedure: other Intubation Complications: none Additional Comments: Initial intubation wasn't complicated. Direct laryngoscopy was performed. Tube placement confirmed with capnography, physical exam, direct inspection, and post x-ray chest. While patient was decompensating, endotracheal tube was removed, he received bag valve mask ventilation, and video laryngoscopy was performed with a Shamir 3 curved blade, and a 7.5 endotracheal tube was replaced, and confirmed with direct inspection and visualization. ED Medical Decision Making - Lab Data Result diagrams: 07/01/17 22:06 07/01/17 22:06 Critical Care Time: Yes Critical care time in (mins) excluding proc time.: 45 Critical care attestation.: If time is entered above; I have spent that time in minutes in the direct care of this critically ill patient, excluding procedure time. ED Disposition Clinical Impression: Altered mental status, CO2 retention, Respiratory acidosis, Acute hypercapnic respiratory failure Disposition: DC-20 Is pt being admited?: No Condition: Undetermined Referrals: JUHI ALVAREZ MD [Primary Care Provider] - 3-5 Days
[2017-07-01 22:51] LABS: Hematocrit 30.8 % (35.5-45.6); Hemoglobin 9.7 gm/dl (11.8-15.2); Mean Corpuscular HGB Conc 32 % (32-34); Mean Corpuscular Hemoglobin 28 pg (28-32); Mean Corpuscular Volume 89 fl (84-94); Platelet Count 140 K/mm3 (140-440); Red Blood Count 3.47 M/mm3 (3.65-5.03); Red Cell Distribution Width 15.6 % (13.2-15.2)
[2017-07-01 22:57] LABS: BUN/Creatinine Ratio 17; Blood Urea Nitrogen 22 mg/dL (9-20); Hemolysis Index 8
[2017-07-01] MEDS ORDERED: fentaNYL DRIP Premix 2,000 MCG/100 ML BAG IV SCH (23:00)
[2017-07-01] MEDS ORDERED: ATIVAN 100 MG in NACL 0.9% 50 ML, VIAFLEX EMPTY CONTAINER 0 ML IV SCH (23:00)
[2017-07-01] MEDS ORDERED: NACL 0.9% 500 ML IV SCH (23:00)
--- NOTE | 2017-07-01 23:48 | XRay Report ---
FINAL REPORT PROCEDURE: XR CHEST 1V AP TECHNIQUE: Chest radiograph anteroposterior view. CPT 39613 HISTORY: ETT placement COMPARISON: 08/19/2016 FINDINGS: Heart: Normal. Mediastinum/Vessels: Normal. Lungs/Pleural space: There is mild COPD.. There are no infiltrates, effusions or pneumothoraces. Bony thorax: No acute osseous abnormality. Life support devices: The endotracheal tube is in the mid trachea.. IMPRESSION: Heart size is normal. There is mild COPD. There are no active infiltrates.. Endotracheal tube is in the mid trachea.
[2017-07-02 00:21] LABS: Band Neutrophils # (Manual) 0.4 K/mm3; Basophils % (Manual) 0 % (0.0-1.8); Eosinophils % (Manual) 0 % (0.0-4.3); Total Cells Counted 100
[2017-07-02 00:23] LABS: Platelet Estimate Consistent w Auto
[2017-07-02 00:52] VITALS: BP 109/68
== END 2017-07-02 04:45 ==
LOC: ED 21:46
DX: I46.9 Cardiac arrest, cause unspecified (principal); I13.0 Hypertensive heart and chronic kidney disease with heart failure and stage 1 through stage 4 chronic kidney disease, or unspecified chronic kidney disease; E11.22 Type 2 diabetes mellitus with diabetic chronic kidney disease; N18.9 Chronic kidney disease, unspecified; J44.9 Chronic obstructive pulmonary disease, unspecified; Z87.891 Personal history of nicotine dependence; Z88.6 Allergy status to analgesic agent
CPT/HCPCS: 36415; 71045; 80048; 82803; 83735; 83880; 84484; 85007; 85025; 92950; 93005; 93010; 99291; J2060